=== PATIENT | female | born 1945 | race Caucasian/White ===

== ENCOUNTER 2016-12-16 08:08 | Day surgery (SDC) | payer MEDICARE, OTHER ==
[2016-12-12 12:26] LABS: HEMATOCRIT 38.7 % (36.0-48.0); HEMOGLOBIN 13.2 g/dL (12.0-16.0)
[2016-12-12 12:36] LABS: A/G RATIO 1.2 (0.7-1.9); ALBUMIN 3.6 G/DL (3.5-5.0); ALKALINE PHOSPHATASE 73 U/L (45-117); BUN (BLOOD UREA NITROGEN) 12 MG/DL (6-23); CALCIUM, SERUM 9.1 MG/DL (8.5-10.4); CHLORIDE, SERUM 108 MMOL/L (96-112); CO2 (CARBON DIOXIDE) 26 MMOL/L (24-34); GFR AFRICAN AMERICAN 102 ML/MIN (>=60); GFR NON AFRICAN AMERICAN 88 ML/MIN (>=60); GLOBULIN 2.9 G/DL (2.5-4.1); GLUCOSE, SERUM 111 MG/DL (60-99); POTASSIUM, SERUM 3.1 MMOL/L (3.5-5.3); SGOT(AST) 26 U/L (5-40); SGPT(ALT) 31 U/L (5-65); SODIUM, SERUM 143 MMOL/L (135-148); TOTAL BILIRUBIN 0.9 MG/DL (0-1.2); TOTAL PROTEIN 6.5 G/DL (6.0-8.5)
--- NOTE | ~2016-12-16 | OP ---
Record Of Operation [facility] [address] [place]. [address] NAME: KILEY ELLSWORTH : 45 [place]US : [place] [facility] [id number] AGE: 71 ADM/REG DATE : 12/16/16 MR#: [id number] REPORT SERV DATE: 12/16/16 DICTATED BY: NILS SANDHU DATE: 12/16/16 REPORT STATUS : Draft TRANSCRIBED BY: MODL DATE: 12/16/16 DATE OF PROCEDURE: 12/16/2016 PREOPERATIVE DIAGNOSIS: Chronic cholecystitis and cholelithiasis. POSTOPERATIVE DIAGNOSIS: Chronic cholecystitis and cholelithiasis. PROCEDURE: Laparoscopic cholecystectomy (3 site). SURGEON: Nils Sandhu MD DESCRIPTION OF OPERATIVE PROCEDURE: The patient was brought to the operating suite, placed in supine position, underwent satisfactory monitored anesthetic care. The patient had a cystectomy and ileal conduit for bladder cancer. This site was draped off and then the skin of the upper abdomen was scrubbed, prepped, and draped in usual sterile fashion. The patient also had a prior midline incision with incisional hernia repair with mesh a number of years ago. Because of these two considerations, an alternate laparoscopic approach was taken, namely a skin incision was made in the right subcostal area after anesthetizing the skin, disposable Veress insufflation was inserted through this site into the peritoneal cavity. The intraperitoneal tip location was ascertained using the saline hanging drop method. CO2 was insufflated for pressures of 15 mmHg throughout the case. Then, a non- bladed 5 mm Optiview trocar was inserted into this site into the peritoneal cavity after achieving insufflation pressures of 15 mmHg. Rigid forward viewing 5 mm laparoscope was inserted. Visualization of the intraabdominal parietes revealed no evidence of injury from the initial insufflation or puncture. Palpation revealed the safe zone beside adhesions from the midline to place another 10/11 mm trocar through the right rectus musculature and then an additional 5 mm trocar was placed superior and cephalad to this next to the falciform ligament. The camera and insufflation were switched to the 10/11 trocar and was placed in reverse Trendelenburg position. The attention was turned to the gallbladder. There were quite dense omental and periduodenal adhesions to the fundus and infundibular portion of the gallbladder, tedious, blunt, and cautery dissection were used to free these adhesions up, and then dissection of triangle of Calot was eventually successful in identifying and skeletonizing the cystic duct and the cystic duct-common duct junction as well as cystic artery. Critical view was obtained. Multiple applications of 5 mm polymer Weck clip system were utilized to secure the cystic duct and cystic artery and any branches, these were divided and then using spatula cautery dissection, the peritoneal attachments to the gallbladder and liver were divided, and the gallbladder was eventually removed from the subhepatic space. Hemostasis was assured. Next, the camera switched to the 5 mm epigastric port. The gallbladder was placed inside an Endo retrieval pouch. Trocar was removed. No muscular bleeding was noted. Gallbladder was withdrawn through the 10/11 mm site. The sac was opened. The gallbladder was morcellated Record Of Operation [facility] [id number] [place]. [address] NAME: KILEY ELLSWORTH : 45 [place]US : [place] [facility] [place]#: [id number] AGE: 71 ADM/REG DATE : 12/16/16 MR#: [id number] REPORT SERV DATE: 12/16/16 DICTATED BY: NILS SANDHU DATE: 12/16/16 REPORT STATUS : Draft TRANSCRIBED BY: MODL DATE: 12/16/16 and the large stone was crushed and all of the contents of the Endo retrieval pouch eventually removed. CO2 was allowed to egress from peritoneal cavity. All sites were closed subcutaneously with interrupted 3-0 Vicryl and running subcuticular stitch 4-0 Vicryl for the skin. Dermabond skin adhesive was placed. The patient tolerated the procedure quite well, was returned to PACU in stable condition. At the termination of procedure, sponge, needle, lap, and instrument counts were correct x3. ESTIMATED BLOOD LOSS: Less than 10-15 mL. WR/MODL Nils Sandhu M.D. / [id number] CC: Sandra Elam M.D.
[~2016-12-16 08:08] MED LIST: ACIPHEX PO; ACTEMRA80 MG/4 ML IV; ANASPAZ0.125 MG PO; AVALIDE1 TA1 PO; BUSPAR15 M1 PO; C5 PO; CALTRA600D PO; COUMADIN4 MG PO; CYMBALTA20 PO; CYMBALTA60 PO; DSS PO; DURA100 TOP; ENDOCET1 TA1 PO; FISH OIL; FLEX PO; FOLIC PO; KLOR-CON 1010 MEQ PO; KLOR-CON M2020 MEQ PO; KLOR-CON20 MEQ PO; LORT7 PO; LORTAB10 PO; LOVENOX80 SC; LUMIGAN OPH; LUNESTA2 M1 OR; LUNESTA2 M1 PO; LYRICA100 MG PO; LYRICA75 PO; MACROBID PO; MACRODANTIN 10100 MG PO; MTX2.5 PO; NEUR300 PO; PCET PO; PERCOCET; PERCOCET 10/3251 TAB PO; PERCOCET1 TA2 PO; PERCOCET1 TA4 PO; PLAQ200B PO; PRAVAC PO; PREV15 PO; PRILO PO; PRILOSEC OTC20 MG PO; PRILOSEC40 MG PO; PYR200 PO; RESTASIS OPH; ROXICODONE15 MG PO; SUCR PO; TOPXL25 PO; URIBEL; UTA OR; VOLTAREN1 % TOP; ZESTORETIC1 TAB PO; ZOFRAN4 PO; ZOFRAN8 PO
[2016-12-16 08:31] LABS: INTERNATIONAL NORMAL RATI 1.3 UNITS (-); PROTIME (NOT ORD) 15.9 SEC (12.0-14.5)
[2017-01-31] MEDS ORDERED: C5 PO (10:12)
[2017-01-31] MEDS ORDERED: ZOFRAN8 PO (10:13)
[2017-06-13] MEDS ORDERED: LOVENOX40 SC (15:25)
[2017-06-13] MEDS ORDERED: CYMBALTA60 PO (15:26)
[2017-06-13] MEDS ORDERED: FLEX PO (15:26)
[2017-06-13] MEDS ORDERED: LYRICA75 PO (15:27)
[2017-06-13] MEDS ORDERED: FEMARA PO (15:28)
[2017-06-14] MEDS ORDERED: POTASSIUM GLUCO99 MG PO (10:44)
[2017-06-19] MEDS ORDERED: PERCOCET 7.5/321 TAB PO (10:57)
== END 2016-12-16 19:31 | disposition home or self-care (01) ==
LOC: SDC 08:08
PROVIDERS: Specialist
PROC: 0FT44ZZ Resection of Gallbladder, Percutaneous Endoscopic Approach (ICD-10-PCS; principal; 2016-12-16 09:00)
DX: C23 Malignant neoplasm of gallbladder (principal); F32.9 Major depressive disorder, single episode, unspecified; M79.7 Fibromyalgia; I10 Essential (primary) hypertension; M81.0 Age-related osteoporosis without current pathological fracture; M06.9 Rheumatoid arthritis, unspecified; N39.0 Urinary tract infection, site not specified; K21.9 Gastro-esophageal reflux disease without esophagitis; H40.9 Unspecified glaucoma; Z98.890 Other specified postprocedural states; Z90.710 Acquired absence of both cervix and uterus; Z79.01 Long term (current) use of anticoagulants; Z79.891 Long term (current) use of opiate analgesic; Z79.899 Other long term (current) drug therapy; Z88.5 Allergy status to narcotic agent; Z86.711 Personal history of pulmonary embolism; Z86.718 Personal history of other venous thrombosis and embolism; Z96.652 Presence of left artificial knee joint
CPT/HCPCS: 80053; 85014; 85018; 85610; 88304; 93005; A9270-GY; J0690; J1170; J2250; J2710; J3010

== ENCOUNTER 2017-02-03 06:36 | Day surgery (SDC) | payer MEDICARE, OTHER ==
--- NOTE | ~2017-02-03 | OP ---
Record Of Operation [facility] [address] [place]. [address] NAME: KILEY ELLSWORTH : 45 STATUS : REG [facility]#: [id number] AGE: 71 ADM/REG DATE : 02/03/17 MR#: [id number] REPORT SERV DATE: 02/03/17 DICTATED BY: NAILA BOLAÑOS DATE: 02/03/17 REPORT STATUS : Draft TRANSCRIBED BY: MODPapi DATE: 02/03/17 DATE OF PROCEDURE: 02/03/2017 PREOPERATIVE DIAGNOSIS: Left breast cancer. POSTOPERATIVE DIAGNOSIS: Left breast cancer. PROCEDURES: 1. Left breast intraoperative ultrasound for tumor mapping. 2. Left breast segmentectomy. 3. Left axillary sentinel lymph node biopsy. INDICATION FOR THE PROCEDURE: Ms Ellsworth a 71-year-old female, who has had multiple cancers including bladder uterine, renal, and most recently gallbladder. She unfortunately did have a new mass on an asymptomatic screening mammogram of the left breast at 4 o'clock position, which was biopsied under ultrasound guidance in my office. 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 This is a moderately aggressive breast cancer, and hopefully would not require any adjuvant chemotherapy. She will by all means be a candidate for adjuvant radiation. The patient is strongly motivated for breast preservation. She presented for lymphoscintigraphy scan yesterday showing good uptake in a single lymph node in the left axilla. OPERATIVE FINDINGS: After appropriate consent was noted on the chart, the patient was taken to the operating room in supine position. She was placed under general anesthesia without any complications. Ultrasound was placed in the left breast and the tumor was mapped 2 to 4 o'clock position 4 cm from the nipple. The clip was visible in the central portion of the tumor, and the hematoma which she had post biopsy has resolved completely. The gamma probe was placed in the left axilla, and good uptake was noted. Methylene blue was not utilized. The patient's left chest wall and axilla were prepped and draped in the sterile fashion. An incision was made over the area marked by the ultrasound, and sharp dissection was carried down to the level of the breast parenchyma. Flaps were created in all directions around the tumor, which was excised with a generous margin. This was marked with sutures, and sent for immediate pathology for evaluation for gross margins. The pathologist noted what appeared to be clear from all margins with the main tumor, but there was a strand of fibrous tissue coming out from the mass heading toward the anterior, medial, and inferior margin, which he felt possibly should be cleared. I took an additional generous piece of soft tissue from this area, marked it as new anterior, inferior, and medial margin, and it was sent for permanent pathology. The wound was irrigated with warm saline. Hemostasis was achieved. Local anesthetic was infiltrated in the skin and soft tissues, and the incision was closed in two layers of Monocryl. The left axillary sentinel node biopsy was performed in routine fashion. An incision was made in the inferior axillary hairline the area of highest uptake. The dissection was carried down to the axillary fat pad, and the sentinel lymph node was excised with an ex-vivo count of 1050, background count at that point was 0. There were no palpable lymph nodes noted. The lymph node that was excised, the sentinel node 1 was soft and fatty and did not feel to be pathologically abnormal. This was sent for permanent Record Of Operation [address] [address] NAME: KILEY ELLSWORTH : 45 STATUS : [place] [facility] [place] PAT#: [id number] AGE: 71 ADM/REG DATE : 02/03/17 MR#: [id number] REPORT SERV DATE: 02/03/17 DICTATED BY: NAILA BOLAÑOS DATE: 02/03/17 REPORT STATUS : Draft TRANSCRIBED BY: MODL DATE: 02/03/17 pathology based on the new guidelines. The wound was irrigated with warm saline. Hemostasis was achieved. Local anesthetic was infiltrated in the skin and soft tissue, and the incision was closed in two layers of Monocryl. The skin was cleansed and dried. Dermabond was overlaid. The Dermabond was allowed to dry, and then burn fluff and a binder were placed on the patient prior to awakening. The patient was awoken from anesthesia without complication, taken to the PACU in stable condition for recovery. All counts were correct at the end of the case. ESTIMATED BLOOD LOSS: 20 mL. COMPLICATIONS: None. SPECIMEN: 1. Left breast segment at 4 o'clock. 2. New anterior, inferior, and medial margin. 3. Left axillary sentinel node x1. BW/MODL Naila Bolaños MD / [id number] CC: MD Kaushal Grimaldo M.D. Richard Hunter Jennings III, M.D. Donald Chamberlain, M.D. [facility] Narciso Lopez M.D.
[2017-02-03 07:11] LABS: INTERNATIONAL NORMAL RATI 1.3 UNITS (-); PROTIME (NOT ORD) 15.8 SEC (12.0-14.5)
[2017-06-13] MEDS ORDERED: LOVENOX40 SC (15:25)
[2017-06-13] MEDS ORDERED: CYMBALTA60 PO (15:26)
[2017-06-13] MEDS ORDERED: FLEX PO (15:26)
[2017-06-13] MEDS ORDERED: LYRICA75 PO (15:27)
[2017-06-13] MEDS ORDERED: FEMARA PO (15:28)
[2017-06-14] MEDS ORDERED: POTASSIUM GLUCO99 MG PO (10:44)
[2017-06-19] MEDS ORDERED: PERCOCET 7.5/321 TAB PO (10:57)
== END 2017-02-03 13:46 | disposition home or self-care (01) ==
LOC: SDC 06:36
PROVIDERS: Surgery Surgical Oncology
PROC: 07B60ZX Excision of Left Axillary Lymphatic, Open Approach, Diagnostic (ICD-10-PCS; 2017-02-03)
PROC: 0BBJ0ZZ Excision of Left Lower Lung Lobe, Open Approach (ICD-10-PCS; principal; 2017-02-03 07:45)
DX: C50.912 Malignant neoplasm of unspecified site of left female breast (principal); I10 Essential (primary) hypertension; M06.9 Rheumatoid arthritis, unspecified; K21.9 Gastro-esophageal reflux disease without esophagitis; F32.9 Major depressive disorder, single episode, unspecified; Z86.711 Personal history of pulmonary embolism; Z79.899 Other long term (current) drug therapy; Z90.710 Acquired absence of both cervix and uterus; Z88.5 Allergy status to narcotic agent; Z90.49 Acquired absence of other specified parts of digestive tract; Z98.890 Other specified postprocedural states; Z86.718 Personal history of other venous thrombosis and embolism; Z79.01 Long term (current) use of anticoagulants; Z85.42 Personal history of malignant neoplasm of other parts of uterus; Z85.51 Personal history of malignant neoplasm of bladder; Z79.891 Long term (current) use of opiate analgesic
CPT/HCPCS: 78195; 85610; 88305; 88307; 88342; 93005; A9270-GY; A9541; J0690; J1170; J2370; J2405; J3010